=== PATIENT | male | born 1940 | race Caucasian/White ===

== ENCOUNTER 2022-05-27 09:51 | Outpatient (CLI) | payer MEDICARE, BC, SELFPAY | END 2022-05-27 09:52 | disposition home or self-care (01) | PROVIDERS: PCP Family Medicine; Visit Provider Family Medicine | DX: T14.90XA Injury, unspecified, initial encounter (principal); R40.20 Unspecified coma; V44.5XXA Car driver injured in collision with heavy transport vehicle or bus in traffic accident, initial encounter; Y92.410 Unspecified street and highway as the place of occurrence of the external cause | CPT/HCPCS: A0433 ==